=== PATIENT | female | born 1980 | race Caucasian/White ===

== ENCOUNTER 2023-07-17 03:57 | Emergency (ER) | payer SELFPAY ==
[~2023-07-17] VITALS: Ht 160 cm; Wt 62.7 kg
[2023-07-17 04:49] LABS: HEMATOCRIT 38.9 % (37.0-47.0); HEMOGLOBIN 13.5 g/dl (12.5-16.0); MEAN CELL VOLUME 89 fl (80.0-100.0); MEAN CORPUSCULAR HEMOGLOBIN 31 pg (27-31); MEAN CORPUSCULAR HGB CONC 35 g/dl (33.0-37.0); PLATELET COUNT 218 K/mm3 (130-400); RED BLOOD COUNT 4.39 M/mm3 (4.10-5.30); REDCELL DISTRIBUTION WIDTH-CV 12.7 % (11.5-14.5)
[2023-07-17 04:52] LABS: COLLECTION METHOD CLEAN CATCH
[2023-07-17 05:04] LABS: ALBUMIN 3.4 gm/dL (3.5-5.0); BILIRUBIN,TOTAL 0.2 mg/dL (0.2-1.2); CALCIUM 8.9 mg/dL (8.4-10.2); CREATININE, serum 0.73 mg/dL (0.57-1.11); TOTAL PROTEIN 6.5 gm/dL (6.2-8.1)
[2023-07-17 05:09] LABS: POTASSIUM 2.7 mmol/L (3.5-4.5)
[2023-07-17 05:15] LABS: PH 5.5 (5.0-8.5); URINE APPEARANCE Clear (CLEAR/HAZY); URINE BLOOD Negative (NEGATIVE); URINE COLOR Yellow (YELLOW); URINE GLUCOSE Negative (NEGATIVE); URINE KETONE 1+ (NEGATIVE); URINE NITRATE Negative (NEGATIVE); URINE PROTEIN(semi-quant) Negative (NEGATIVE); URINE RBC 0-2 /hpf (0-2); URINE UROBILINOGEN 0.2 E.U/dL (0.2-1.0)
[2023-07-17 05:16] LABS: URINE BACTERIA Occasional /hpf (NONE SEEN)
[2023-07-17 05:38] LABS: BAND 6 % (0-10); EOSINOPHIL 1 % (0-4); LYMPHOCYTE 51 % (20.0-51.0); NEUTROPHILS 37 % (42.0-75.2); PLATELET ESTIMATE NORMAL (NORMAL)
[2023-07-17] MEDS ORDERED: PROTONIX 40MG T40 MG PO (08:23)
[2023-07-17] MEDS ORDERED: MACROBID 1100 MG/CAP PO (08:24)
[2023-07-17 09:00] VITALS: BP 110/69; PULSE 80
== END 2023-07-17 09:06 | disposition home or self-care (01) ==
LOC: COL.ER 03:57
PROVIDERS: Emergency Medicine
DX: N39.0 Urinary tract infection, site not specified (principal); E86.0 Dehydration; E87.6 Hypokalemia
CPT/HCPCS: J2405; J3010; J3480; J7030; Q9967